=== PATIENT | female | born 1960 | race Caucasian/White ===

== ENCOUNTER → 2016-10-23 | Outpatient (CLI) | payer OTHER | LOC: BMCIMAGING 14:30 | PROVIDERS: ATTEND Obstetrics & Gynecology | DX: Z12.31 Encounter for screening mammogram for malignant neoplasm of breast (principal) | CPT/HCPCS: G0202 ==

== ENCOUNTER → 2017-11-11 | Outpatient (CLI) | payer OTHER | LOC: FIMAGING 13:48 | PROVIDERS: ATTEND Obstetrics & Gynecology | DX: Z12.31 Encounter for screening mammogram for malignant neoplasm of breast (principal) ==

== ENCOUNTER 2018-07-09 20:30 | Emergency (ER) | payer OTHER ==
[2018-07-09] MEDS ORDERED: ONDANSETRON 4 MG/2 ML VIAL ONE (20:47)
[2018-07-09] MEDS ORDERED: ONDANSETRON 4 MG/2 ML VIAL IVP ONE (20:50)
[2018-07-09] MEDS ORDERED: NS 1,000 ML IV ONE ×2 (20:50→21:47)
[2018-07-09] MEDS ORDERED: KETOROLAC 30 MG/1 ML SDV IVP ONE (21:27)
--- NOTE | 2018-07-09 21:32 | EDPHY ---
H & P Time Seen by Provider: 07/09/18 21:18 HPI/ROS: CHIEF COMPLAINT: "migraine" HISTORY OF PRESENT ILLNESS: Patient is a 57-year-old female has a history of migraine headaches. She has approximately 4 migraine headache see year. Patient states this was "completely typical" of her migraine headaches. Patient states that she does not have an aura or indication that she is going to get headache. Her headache was diffuse in onset. She describes it as severe. She had nausea with no vomiting. She denies any focal neurologic deficits. No weakness or numbness. No visual change. The patient has no fever or chills. Patient is recovering from a recent cold. REVIEW OF SYSTEMS: 10 systems were reveiwed and are negative with the exception of the elements mentioned in the history of present illness. Past Medical/Surgical History: Includes migraine Smoking Status: Never smoked Physical Exam: Vitals noted GENERAL: Mild acute distress, alert. HEENT: Eyes normal to inspection, normal pharynx, no signs of dehydration. NECK: Normal, supple. RESPIRATORY: Clear to auscultation bilaterally, no rales, rhonchi or wheezing. CVS: Regular rate and rhythm, no rubs, murmurs, or gallops. ABDOMEN: Soft, nontender, nondistended, no organomegaly. BACK: Normal to inspection, no CVA tenderness. SKIN: Normal color, no rash, warm, dry. No pallor. EXTREMITIES: No pedal edema, no calf tenderness, no Homans sign or cords, no joint swelling. NEURO/PSYCH: Higher functions: Alert and Oriented x3. Normal speech and cognition. Normal mood and affect. Cranial nerves: Normal as tested. Cerebellar: Normal as tested. Good finger to nose, good [id number], normal gait. Peripheral exam: Normal motor exam. Normal sensation. Normal reflexes. Constitutional: Initial Vital Signs Temperature (C) 36.7 C 07/09/18 20:35 Heart Rate 60 07/09/18 20:35 Respiratory Rate 16 07/09/18 20:35 Blood Pressure 148/77 H 07/09/18 20:35 O2 Sat (%) 99 07/09/18 20:35 O2 Delivery Mode Room Air Allergies/Adverse Reactions: ceftriaxone [From Rocephin] Allergy (Verified 07/09/18 20:34) Sulfa (Sulfonamide Antibiotics) Allergy (Verified 07/09/18 20:34) Home Medications: Medication Instructions Recorded NK [No Known Home Meds] 07/09/18 Medical Decision Making ED Course/Re-evaluation: In the emergency department I discussed possible etiologies with the patient. I answered all her questions. IV was placed. Patient was given Zofran 4 mg IV and Toradol 30 mg IV. Patient states he has medications usually arrest her headache. She did not want any other medications. Patient did not want head CT imaging. Differential Diagnosis: My differential includes but is not limited to migraine, headache, subarachnoid hemorrhage, meningitis - Data Points Medications Given: Discontinued Medications Sodium Chloride (Ns) 1,000 mls @ 0 mls/hr IV EDNOW ONE; Wide Open PRN Reason: Protocol Stop: 07/09/18 20:51 Last Admin: 07/09/18 20:55 Dose: 1,000 mls Ondansetron HCl (Zofran) 4 mg IVP EDNOW ONE Stop: 07/09/18 20:51 Last Admin: 07/09/18 20:55 Dose: 4 mg Departure - Departure Disposition: Home, Routine, Self-Care Clinical Impression: Migraine Qualifiers: Migraine type: unspecified Status migrainosus presence: with status migrainosus Intractability: not intractable Qualified Code(s): G43.901 - Migraine, unspecified, not intractable, with status migrainosus Condition: Good Instructions: Migraine Headache (ED) Additional Instructions: Return with increasing headache, weakness, numbness or any other concerns Referrals: Kimani Miner MD [Primary Care Provider] - 5-7 days, call for appt.
[2018-07-09 22:37] VITALS: BP 141/90
== END 2018-07-09 22:30 | disposition home or self-care (01) ==
DX: G43.901 Migraine, unspecified, not intractable, with status migrainosus (principal); E86.9 Volume depletion, unspecified
CPT/HCPCS: 96374; J1885; J2405

== ENCOUNTER → 2018-07-28 | Outpatient (CLI) | payer OTHER | LOC: BMCIMAGING 15:16 ==